=== PATIENT | female | born 1955 | race Caucasian/White ===

== ENCOUNTER 2025-09-02 09:19 | Emergency (ER) | payer OTHER, SELFPAY ==
--- NOTE | ~2025-09-02 | US_ITS ---
LEFT LOWER EXTREMITY VENOUS DUPLEX Clinical History: Superficial thrombophlebitis, calf muscle pain COMPARISON: None TECHNIQUE: Grayscale, color, duplex/spectral Doppler sonography left leg FINDINGS: Left leg common femoral, femoral, popliteal, and calf veins compressible and color Doppler patent. Normal augmentation with distal compression. No internal echoes. Possible short segment thrombus lesser saphenous vein. IMPRESSION: 1. No left leg DVT. 2. Possible short segment thrombus lesser saphenous vein. Reviewed, dictated and finalized at location [facility]. [employer]
[2025-09-02 09:25] VITALS: BP 136/94; PULSE 94; RESP 18; TEMP 36.7; O2SAT 98
--- NOTE | 2025-09-02 09:33 | ED.GENADULT ---
HPI - General Adult General Chief complaint: Skin/Abscess/Foreign Body Stated complaint: vericose vein Time Seen by Provider: 09/02/25 09:32 Source: patient Mode of arrival: ambulatory Limitations: no limitations History of Present Illness HPI narrative: Patient referred to the emergency room by her family physician office because of pain and swelling at the back of left knee started 3-4 days ago. Patient have varicose vein at this area for years. Patient is telling me that over the last 7 days been feeling aches at the left calf muscle, denies any trauma, fever, chills, nausea, vomiting, shortness of breath or chest pain Related Data Home Medications ?Medication ?Instructions ?Recorded ?Confirmed ?Last Taken ?Type No Home Medications 09/02/25 09/02/25 Unknown History Allergies Allergy/AdvReac Type Severity Reaction Status Date / Time codeine Allergy Mild Abdominal Verified 09/02/25 09:25 Pain pseudoephedrine Allergy Mild Abdominal Verified 09/02/25 09:25 Pain Review of Systems Review of Systems: All systems reviewed & are unremarkable except as noted in HPI and below Exam Narrative: General appearance: Well-developed, well-nourished Skin: Normal color Head: Normocephalic, nontraumatic Eyes: Clear conjunctiva ENT: Oropharynx normal, ears normal, nose normal Neck: Supple, nontender Chest and respiratory: Airway patent, no respiratory distress, no accessory muscle use Heart: Regular rate/rhythm Abdomen: Soft, nontender, no organomegaly, quiet bowel sounds Vascular: Normal peripheral pulses, normal capillary refill. Musculoskeletal: Left lower extremity exam showing varicose vein at the back of left knee, slightly swelling, tender to touch, no erythema, no discharge, no fluctuation Neurologic: Alert and oriented ?3, [employer] is normal as tested, no gross motor deficit Course Vital Signs Vital signs: Vital Signs Temperature 36.7 C 09/02/25 09:25 Pulse Rate 94 09/02/25 09:25 Respiratory Rate 18 09/02/25 09:25 Blood Pressure 136/94 H 09/02/25 09:25 Pulse Oximetry 98 09/02/25 09:25 Oxygen Delivery Room Air 09/02/25 09:25 Temperature 36.7 C 09/02/25 09:25 Pulse Rate 94 09/02/25 09:25 Respiratory Rate 18 09/02/25 09:25 Blood Pressure 136/94 H 09/02/25 09:25 Pulse Oximetry 98 09/02/25 09:25 Oxygen Delivery Room Air 09/02/25 09:25 Medical Decision Making MDM Narrative Medical decision making narrative: Patient presents with pain and tenderness at the back of left knee which she have varicose veins for years. Vital signs are stable Physical examination showing tenderness swelling at the varicose vein left knee posteriorly Differential diagnosis superficial thrombophlebitis less likely deep vein thrombosis Venous Doppler left lower extremity showed no deep vein thrombosis, possible short segment thrombus lesser saphenous vein Diagnosis superficial thrombophlebitis The pt was discharged to home.the pt,s condition upon discharge was fair,education was provided to the pt in reference to the final impression,discharge study results,treatment,prognosis and need for follow up . Differential Diagnosis Differential Diagnosis: As above Vital Signs Vital Signs: Vital Signs Temperature 36.7 C 09/02/25 09:25 Pulse Rate 94 09/02/25 09:25 Respiratory Rate 18 09/02/25 09:25 Blood Pressure 136/94 H 09/02/25 09:25 Pulse Oximetry 98 09/02/25 09:25 Oxygen Delivery Room Air 09/02/25 09:25 Temperature 36.7 C 09/02/25 09:25 Pulse Rate 94 09/02/25 09:25 Respiratory Rate 18 09/02/25 09:25 Blood Pressure 136/94 H 09/02/25 09:25 Pulse Oximetry 98 09/02/25 09:25 Oxygen Delivery Room Air 09/02/25 09:25 Critical Care Time Critical Care Time Critical Care Time: No Discharge Plan Discharge Clinical Impression: Superficial thrombophlebitis Patient Disposition: Home Condition: Stable Instructions: Superficial Thrombophlebitis (ED) Additional Instructions: Return if symptoms are worsening , call your family physician for appointment, take Tylenol as as needed for aches and pain, continue home medications. Warm compresses Ibuprofen 600 every 6 hours as needed Patient Language: Tajik Prescriptions: No Action No Home Medications Follow-up/Referrals: Jose Yi MD [Primary Care Provider, Internal Medicine]
--- NOTE | 2025-09-02 10:15 | PC.NURSE ---
Ultrasound at bedside.
[2025-09-02 10:51] VITALS: BP 131/72; PULSE 74; RESP 16; TEMP 36.5; O2SAT 95
== END 2025-09-02 10:56 | disposition home or self-care (01) ==
PROVIDERS: Emergency Provider Emergency Medicine; PCP Family Medicine
DX: I80.9 Phlebitis and thrombophlebitis of unspecified site (principal)
CPT/HCPCS: 93971; 99284